=== PATIENT | female | born 1995 | race Caucasian/White ===

== ENCOUNTER 2019-11-14 10:37 | Outpatient (CLI) | payer BC ==
--- NOTE | 2019-11-14 10:55 | RAD ---
XR Chest Pa Lat STANDARD HISTORY: Induration of the skin. Positive TB skin test COMPARISON: None FINDINGS: The heart size is normal. The lungs are well expanded without focal areas of consolidation, pneumothorax or pleural effusions. IMPRESSION: No radiographic evidence of acute cardiopulmonary process. No evidence of active pulmonar y tuberculosis
== END 2019-11-14 10:38 | disposition home or self-care (01) ==
LOC: BICRAD 10:37
PROVIDERS: ATTEND Family Medicine
DX: R23.4 Changes in skin texture (principal)
CPT/HCPCS: 71046